=== PATIENT | male | born 1940 ===

== ENCOUNTER 2019-05-29 09:09 | Day surgery (SDC) | payer MEDICARE, BC ==
[~2019-05-29] VITALS: Ht 177.8 cm; Wt 68.0 kg
[~2019-05-29 09:09] MED LIST: ASPI325 PO; Adult Low Dose81 MG; Aspirin EC81 MG PO; Avodart0.5 MG PO; CLON1 PO; CLOP75 PO; Calcium 250+D1 EACH PO; Dulcolax Stool100 MG PO; FAMO40 PO; MAGNESIUM250 MG PO; MELATONIN5 M1 PO; NAPR220 PO; NAPR500 PO; OMEP20ER PO; POTA8 PO; PRAVASTATIN SOD10 MG; PRAVASTATIN SOD10 MG PO; TAMS.4ER; THERA-D2000 UNIT PO; Vitamin E400 UNI4 PO
== END 2019-05-29 11:47 | disposition home or self-care (01) ==
LOC: ORSCSDS 09:09
PROVIDERS: Internal Medicine Gastroenterology
PROC: 0DBH8ZX Excision of Cecum, Via Natural or Artificial Opening Endoscopic, Diagnostic (ICD-10-PCS; principal; 2019-05-29 10:30)
DX: Z12.11 Encounter for screening for malignant neoplasm of colon (principal); Z86.010 Personal history of colon polyps; D12.0 Benign neoplasm of cecum; K57.30 Diverticulosis of large intestine without perforation or abscess without bleeding; G47.30 Sleep apnea, unspecified; Z87.891 Personal history of nicotine dependence; Z79.82 Long term (current) use of aspirin; Z79.899 Other long term (current) drug therapy
CPT/HCPCS: 84443; 88305; J2704; J7120

== ENCOUNTER → 2021-03-17 | Outpatient (CLI) | payer MEDICARE, BC ==
[2021-03-18 14:24] LABS: Stool Occult Bld Immuno 1 Negative (NEGATIVE)
== END | disposition home or self-care (01) ==
LOC: LAB SHORT 09:00
PROVIDERS: Physician Assistant
DX: D64.9 Anemia, unspecified (principal)
CPT/HCPCS: G0328